=== PATIENT | female | born 1980 | race Caucasian/White ===

== ENCOUNTER → 2018-09-01 10:39 | Outpatient (CLI) | payer BC, SELFPAY ==
--- NOTE | 2018-09-01 10:54 | US_ITS ---
US OB transvaginal HISTORY: ITS.REASON: US OB Dates ORDERING PHYSICIAN: Duy Wilkinson MD PATIENT AGE: 38 years COMPARISON: None FINDINGS: An intrauterine gestational sac is present with a pole with a crown-rump length of 0.94cm correlating to gestational age of 7w0d. heart tones are present with an FHR of 136 bpm's. Yolk sac is noted. Adnexa: There is a 4.7 cm left corpus luteum cyst. IMPRESSION: Live intrauterine gestation with an average ultrasound age of 7 weeks 0 days. 4.7 cm left corpus luteum cyst Estimated due date by Ultrasound is 04/20/2019
[2018-09-01 11:57] LABS: Basophils % 0.4 % (0.1-2.0); Eosinophils % 0.3 % (0.1-12.0); Hematocrit 39.5 % (37.0-47.0); Hemoglobin 13.1 g/dL (12.2-16.2); Lymphocytes # 1.8 K/mm3 (0.7-4.5); Lymphocytes % 22.2 K/mm3 (10-50); Mean Corpuscular HGB Conc 33.2 g/dL (31.8-35.4); Mean Corpuscular Hemoglobin 32.2 pg (27.0-31.2); Mean Corpuscular Volume 96.9 fl (81-99); Mean Platelet Volume 6.7 fl (7.4-10.4); Monocytes # 0.3 K/mm3 (0.1-1.0); Monocytes % 4.1 % (1.7-9.3); Neutrophils % 72.9 % (37.0-80.0); Platelet Count 293 K/mm3 (142-424); Red Blood Count 4.07 M/mm3 (4.20-5.40); Red Cell Distribution Width 12.9 % (11.5-17.5); White Blood Count 8.3 K/mm3 (4.8-10.8)
[2018-09-02 14:45] LABS: HIV Screen 4th Generation wRfx Non Reactive (Non Reactive); Hepatitis B Surface Antigen Negative (Negative); Hepatitis C Antibody <0.1 s/co ratio (0.0-0.9); Rapid Plasma Reagin Ab Titer Non Reactive (NonRea<1:1); Rubella Antibodies, IgG 2.03 index (Immune >0.99)
== END ==
PROVIDERS: Visit Provider Nurse Practitioner Obstetrics & Gynecology
DX: Z34.90 Encounter for supervision of normal pregnancy, unspecified, unspecified trimester (principal); O26.841 Uterine size-date discrepancy, first trimester
CPT/HCPCS: 36415; 76817; 85025; 86592; 86703; 86762; 86850; 87340; 87380; G0432

== ENCOUNTER → 2018-12-01 12:45 | Outpatient (CLI) | payer BC, SELFPAY ==
--- NOTE | 2018-12-01 12:50 | US_ITS ---
US OB /maternal detail: INDICATION: ITS.REASON: US OB Complete ORDERING PHYSICIAN: Duy Wilkinson MD PATIENT AGE: 38 years TECHNIQUE: ultrasound transabdominal scanning. COMPARISON: No previous relevant studies. FINDINGS: Single viable intrauterine gestation. Ceph position. Placenta: Anterior placenta grade 1. There is average amount fluid. The cervix appears satisfactory. Closed and measuring 3 cm in length. Complete survey performed and was unremarkable on the submitted images as in PACS. No discrete anomalies identified on survey imaging by technologist. Active fetus. Three-vessel cord with satisfactory umbilical cord insertion. 4- chamber heart noted. Survey of brain & ventricles unremarkable. Face and neck survey unremarkable. Diaphragm and chest views unremarkable. Abdomen: Both kidneys noted and unremarkable. Stomach noted and satisfactory. Spine: Survey of the spine satisfactory with no anomalies identified nor imaged. Both arms and legs noted. Amniotic Fluid: Adequate. Maternal adnexa: No significant findings. Measurements: Average ultrasound age 20w1d. Gestational Age 20w0d. Estimated due date by ultrasound age 0604/19/2019. Estimated weight 339 grams. BPD = 20w1d OFD = 20w3d HC = 19w4d AC = 20w4d FL = 20w0d Growth Percentile= 58% Heart Rate = 144 Cerebellum = 20w0d Humerus = 20w1d HC/AC is 1.10 (1.09-1.26). CI is 78% (70-86%). FL/BPD is 69%. FL/AC is 21%. IMPRESSION: There is a single live fetus which is in cephalic presentation. heart and body motion noted. No obvious anomalies. All parameters correlate. Average ultrasound age is 20 weeks and 1 day. There is posterior grade 1 placenta. Please see above for details
== END ==
PROVIDERS: PCP Internal Medicine Adolescent Medicine; Visit Provider Nurse Practitioner Obstetrics & Gynecology
DX: Z36.0 Encounter for antenatal screening for chromosomal anomalies (principal)
CPT/HCPCS: 76811

== ENCOUNTER → 2019-01-22 07:48 | Outpatient (CLI) | payer BC, SELFPAY ==
[2019-01-22 08:34] LABS: Glucose,Fasting 84 mg/dL (60-105)
[2019-01-22 09:50] LABS: Glucose 1 Hour 149 mg/dL (74-106)
== END ==
PROVIDERS: Visit Provider Nurse Practitioner Obstetrics & Gynecology
DX: Z34.90 Encounter for supervision of normal pregnancy, unspecified, unspecified trimester (principal)
CPT/HCPCS: 36415; 82951

== ENCOUNTER → 2019-01-25 07:58 | Outpatient (CLI) | payer BC, SELFPAY ==
[2019-01-25 09:08] LABS: Glucose,Fasting 90 mg/dL (60-105)
[2019-01-25 09:41] LABS: Glucose 1 Hour 178 mg/dL (74-106)
[2019-01-25 10:55] LABS: Glucose 2 Hour 140 mg/dL (74-106)
[2019-01-25 11:58] LABS: Glucose 3 Hour 97 mg/dL (74-106)
== END ==
PROVIDERS: Visit Provider Nurse Practitioner Obstetrics & Gynecology
DX: Z34.90 Encounter for supervision of normal pregnancy, unspecified, unspecified trimester (principal)
CPT/HCPCS: 36415; 82951

== ENCOUNTER → 2019-03-18 15:32 | Outpatient (CLI) | payer BC, SELFPAY | PROVIDERS: Visit Provider Nurse Practitioner Obstetrics & Gynecology | DX: Z34.90 Encounter for supervision of normal pregnancy, unspecified, unspecified trimester (principal) | CPT/HCPCS: 86403 ==

== ENCOUNTER 2019-04-19 05:24 | Inpatient (IN) ==
[2019-04-19 05:38] LABS: Appearance,Urine SL CLOUDY (Clear); Bilirubin,Urine Negative (Negative); Blood, Urine 2+ (Negative); Color,Urine YELLOW (Yellow); Glucose,Urine (UA) Negative (Negative); Ketones,Urine Negative (Negative); Leukocyte Esterase,Urine Negative (Negative); Microscopic, Urine URINE MICROSCOPIC (MICROSCOPIC); Protein,Urine 2+ (Negative); Specific Gravity, Urine 1.025 (1.005-1.030); Urobilinogen,Urine 0.2 EU/dl (0.2)
[2019-04-19 05:42] LABS: Squamous Epithelial Cell,Urine 20-50 #/hpf (0-5); WBC,Urine Occasional #/hpf (0-3)
[2019-04-19 05:48] LABS: Amphetamine/Metha Screen,Urine Negative ng/mL (<1000); Barbiturates Screen,Urine Negative ng/mL (<200); Benzodiazepines Screen,Urine Negative ng/mL (<200); Cannabinoid Screen,Urine Negative ng/mL (<50); Cocaine Screen,Urine Negative ng/mL (<300); Methadone Screen,Urine Negative ng/mL (<300); Opiate Screen,Urine Negative ng/mL (<300); Phencyclidine Screen,Urine Negative ng/mL (<25)
[2019-04-19 06:04] LABS: Basophils # 0.1 K/mm3 (0-0.2); Basophils % 0.5 % (0.1-2.0); Eosinophils % 0.4 % (0.1-12.0); Hematocrit 31.6 % (37.0-47.0); Hemoglobin 10.8 g/dL (12.2-16.2); Lymphocytes # 1.8 K/mm3 (0.7-4.5); Lymphocytes % 20.3 % (10-50); Mean Corpuscular Volume 95.4 fl (81-99); Mean Platelet Volume 7.9 fl (7.4-10.4); Monocytes # 0.4 K/mm3 (0.1-1.0); Monocytes % 4.4 % (1.7-9.3); Neutrophils # 6.5 K/mm3 (1.8-7.8); Neutrophils % 74.4 % (37.0-80.0); Platelet Count 203 K/mm3 (142-424); Red Blood Count 3.32 M/mm3 (4.20-5.40); Red Cell Distribution Width 14.6 % (11.5-17.5); White Blood Count 8.8 K/mm3 (4.8-10.8)
[2019-04-19 06:11] LABS: Anion Gap 16.5 mEq/L (5-15); Calcium 8.5 mg/dL (8.5-10.1)
--- NOTE | 2019-04-19 07:19 | Progress Note ---
[facility] Anesthesia Checklist - Patient Identification Patient Identification: Arm Band, Verbal (Name & ) - Structural Data Admitted From: Home Planned Operative Procedure/s: Repeat , B salpingectomy Consent for Planned Operative Procedure(s) Verified: Yes Verified Documents: Surgical Consent, History and Physical - NPO Status Verified Time NPO: 00:00 - Chart Verification Results Verified: CBC, BMP - Additional verifications Patient : Yes Anesthesia Reactions: No - Airway Assessment C-Spine Mobility Assessed: Yes TMJ Mobility Assessed: Yes Dentition: Good Dentition - Neurological Assessment Level of Consciousness: Awake, Alert, Appropriate, Follows Commands Hx Seizures: No Numbness or tingling in extremities: No - Anesthesia Plan Anesthesia Risk discussed: Yes Anesthesia Plan: Verified ASA Class: II Anesthesia Type: Spinal [facility] History I have reviewed the patient's past medical history: Yes Medical History: Reports:: Gastroesophageal Reflux Disease(GERD), Hyperlipidemia Denies:: Anxiety, Depression, Diabetes Mellitus Type 1, Hypertension, Migraine, MRSA, Seizures *Have you ever received a pneumonia vaccine?: No *Have you received a flu vaccine this season?: No Other Surgeries: Yes: Amputation: No Fractures: No - *Social History Smoking Status: Current every day smoker Tobacco Type: cigarettes # Packs/Day (cigarettes): 0 Alcohol Intake: never Substance Use Type: denies use *Occupational Status:: employed *Travel in the last 8 weeks: None - Psychiatric History Expresses thoughts of harming self/others: None Suicide Plan Description: No Plan Pschychiatric History:: Denies:: Anxiety, Depression Family Hx:: No significant family history Para: 2
--- NOTE | 2019-04-19 08:45 | Operative Note ---
Date of procedure: 04/19/19 Pre-op Diagnosis:: Term , previous section, desire for sterilization Post-op Diagnosis:: Term , previous section, desire for sterilization Procedure performed:: Repeat lower segment transverse section and bilateral salpingectomy Surgeon:: Duy Wilkinson MD Differential Specialist(s):: Dr. Arriola SILVERING APPLICATOR:: Jass العلي Anesthesia: spinal Estimated blood loss (mL): 600 Clinical Note:: She is a 38-year-old 3 para 2 at 39+ weeks gestational age. She has had a previous section as a result of that was offered repeat lower segment transverse section. She also expressed desire for sterilization. The risks and benefits as well as the irreversibility of bilateral salpingectomy were discussed with the patient. Operative findings:: She delivered a liveborn female child at 7:45 AM on the morning of April 19, 2019. The baby had Apgars of 8 at 1 minute and 9 at 5 minutes. pH was 7.32. Ovaries and tubes appeared normal. Operative note:: She was taken to the operating room where spinal anesthesia was found be adequate. She was prepped and draped in normal sterile fashion in the supine position with a leftward tilt. A Mederos catheter was in the bladder. A Pfannenstiel skin incision was made with knife then carried through to the underlying layer of fascia with cautery. The fascia was opened in the midline with cautery and extended laterally using Levine scissors. Harley clamps were ap plied to the superior aspect of the fascial incision which was tented up and the underlying rectus muscles dissected off using cautery. The [place] clamps were then applied to the inferior aspect of the fascial incision which in a similar fashion was tented up and the underlying rectus muscles dissected off using cautery. The rectus muscles were then in the midline, the peritoneum identified, and entered sharply with Metzenbaum scissors. This incision was then extended superiorly and inferiorly with cautery. We had good visualization of the bladder inferiorly. The bladder peritoneum was then opened in the midline and extended laterally using Metzenbaum scissors. A bladder flap was created digitally. Transverse incision was made through the uterine muscle to the amnion. This inc ision was then extended laterally using fingers traction. The amnion was entered sharply with knife. There was clear amniotic fluid. The 's head was then delivered atraumatically. This was followed by the anterior shoulder and the rest of the infant's body atraumatically. The oropharynx and nasopharynx were bulb suctioned. We allowed the cord to continue to pulsate for approximately 1 minute. The cord was then doubly clamped and cut. The infant was then handed off to Dr. Ramírez who assigned Apgars of 8 at 1 minute and 9 at 5 minutes. We then obtained cord blood as well as cord pH. The pH was 7.32. Using gentle traction on the cord and countertraction on the fundus I was able to easily deliver the placenta intact. It had a normal three-vessel cord. Uterus was then exteriorized from the abdominal cavity. The uterus was then cleared of clots and debris . The uterine incision was then closed using running 0 Vicryl suture in a locked fashion. A second layer of the same suture was used to imbricate the first layer. The bladder peritoneum was then closed using running 2-0 Vicryl suture in a locked fashion. The gutters and cul-de-sac were then cleared of clots and debris . Once again hemostasis was assured. We then turned our attention to the bilateral salpingectomy. The distal end of the right tube was grasped and using the endo-seal device I clamped and cauterized along the mesosalpinx. The right tube was then removed. This was similar performed on the patient's left side. It was noted that there was some bleeding near the left ovary and I placed a number of [id number] sutures here to obtain excellent hemostasis. On the right side mesosalpinx there was also some bleeding and hemostasis was assured with [id number] 2-0 Vicryl suture. After assuring hemostasis the uterus was then returned to the abdominal cavity. We had first wrap the left ovary with 3 pieces of Surgicel. It was hemostatic. I elected to place Surgicel along the uterine incision as well. The peritoneum was grasped with Callie clamps and closed using running 2-0 Vicryl suture. The rectus muscles were then reapproximated using running 0 Vicryl suture. The fascia was closed using running #1 Vicryl suture. The subcutaneous tissues were then irrigated with warm water followed by closure Carie's fascia using running 2-0 Monocryl suture. The skin was closed with an. I then cleaned the skin with Hibiclens. Sterile dressings were applied. She tolerated the procedure well and was taken to the recovery room in excellent condition. All sponges minute and needle counts were correct. Estimate a blood loss was approximately 600 mL. Condition: stable Disposition: PACU Specimens:: Bilateral fallopian tubes Complications:: None
--- NOTE | 2019-04-19 08:47 | Progress Note ---
[facility] Anesthesia Record Part I Intake, IV Amount: 1,400 Estimated blood loss (mL): 600 Urine output (mL): 0 (NM) Blood Products used (#): none Blood Pressure: 117/63 SaO2: 97 Pulse Rate: 77 Respiratory Rate: 16 Temperature: 97.0 F Patient is:: Awake, Stable Stable to PACU at:: 08:40
--- NOTE | 2019-04-19 08:48 | Progress Note ---
[facility] Anesthesia Record Part II Discharge Time: 09:10 Destination: Obstetric PACU nurse assessment reviewed?: Yes Patient Condition:: Good Anesthesia Complications:: None Swallowing reflex intact?: Yes Cyanosis?: No
[2019-04-19 09:47] LABS: Hematocrit 23.9 % (37.0-47.0); Hemoglobin 7.8 g/dL (12.2-16.2)
--- NOTE | 2019-04-19 09:57 | Progress Note ---
Internal Medicine - PN: Subj *Date: 04/19/19 *Time: 09:54 Interval history: While in the PACU she passed about 500 cc of blood on her check. On massage of the uterus a few minutes later she passed another 500 cc. I inserted a BAKRI uterine balloon and this seemed to ameliorate the bleeding. She did receive 250 mcg of Hemabate as well as IV fluids and IV oxytocin. Her blood pressure had dropped into the systolic of 70s. Her heart rate was in the 110 range. After inserting the balloon she has stabilized. Her hemoglobin was 7.8. We have typed and crossed her for 4 units. We will plan to give her 2 units. She is now back up in labor and delivery and seems to be doing well. Her color is good her blood pressure is 109/70 and her heart rate is 82. She has some blood in the Mederos bag from the balloon but otherwise is stable. There is no bleeding from the vagina. We will plan to leave this in until tomorrow morning. Exam Vital signs and Labs for Last 24 Hours: Temp Pulse Resp BP 97.0 F L 77 16 117/63 04/19/19 08:47 04/19/19 08:47 04/19/19 08:47 04/19/19 08:47 Laboratory Results - last 24 hr 04/19/19 05:30: Urine Color Yellow, Urine Appearance Sl cloudy, Urine pH 7.0, Ur Specific [place] 1.025, Urine Protein 2+, Urine Glucose (UA) Negative, Urine Ketones Negative, Urine Blood 2+, Urine Nitrate Negative, Urine Bilirubin Negative, Urine Urobilinogen 0.2, Ur Leukocyte Esterase Negative, Urine RBC 5- 10, Urine WBC Occasional, Ur Squamous Epith Cells 20-50 04/19/19 05:30: Urine Opiates Screen Negative, Urine Methadone Screen Negative, Ur Barbituates Screen Negative, Ur Phencyclidine Scrn Negative, Ur Amphetamines Screen Negative, U Benzodiazepines Scrn Negative, Urine Cocaine Screen Negative, U Marijuana (THC) Screen Negative 04/19/19 05:55: WBC 8.8, RBC 3.32 L, Hgb 10.8 L, Hct 31.6 L, MCV 95.4, MCH 32.4 H, MCHC 34.0, RDW 14.6, Plt Count 203, MPV 7.9, Neut % (Auto) 74.4, Lymph % (Auto) 20.3, [place] % (Auto) 4.4, Eos % (Auto) 0.4, Baso % (Auto) 0.5, Neut # (Auto) 6.5, Lymph # (Auto) 1.8, [place] # (Auto) 0.4, Eos # (Auto) 0.0, Baso # (Auto) 0.1 04/19/19 05:55: Sodium 138, Potassium 3.5, Chloride 105, Carbon Dioxide 20 L, Anion Gap 16.5 H, BUN 7, Creatinine 0.52 L, Estimated Creat Clear 203, Estimated GFR 133, Est GFR ( Amer) 161, Glucose 88, Calcium 8.5 04/19/19 05:55: Blood Type O Positive, Antibody Screen Negative, Crossmatch (AHG) See Detail 04/19/19 07:30: Urine Color Yellow, Urine Appearance Clear, Urine pH 7.5, Ur Specific [place] 1.010, Urine Protein Negative, Urine Glucose (UA) Negative, Urine Ketones Negative, Urine Blood Trace-i, Urine Nitrate Negative, Urine Bilirubin Negative, Urine Urobilinogen 0.2, Ur Leukocyte Esterase Negative, Urine RBC Occasional, Urine WBC Occasional, Ur Squamous Epith Cells Occasional, Urine Bacteria Trace 04/19/19 07:49: Cord ABG pH 7.32 L 04/19/19 09:30: Hgb 7.8 L* D, Hct 23.9 L* I & O for Last 24 hours: Intake & Output 04/16/19 04/17/19 04/18/19 04/19/19 11:59 11:59 11:59 11:59 Intake Total 1400 / 1400 Balance 1400 / 1400 Weight 190 lb - Constitutional no acute distress Assessment and Plan (1) Postoperative vaginal bleeding Current visit: Yes Status: Acute Category: Medical (2) Postoperative anemia due to acute blood loss Current visit: Yes Status: Acute Category: Medical Code(s): D62 - Acute posthemorrhagic anemia (3) Uterine atony, , current hospitalization Current visit: Yes Status: Acute Category: Medical Code(s): O75.89 - Other specified complications of labor and delivery (4) tubal ligation planned Problem details: bilateral salpingectomy concurrent with repeat CS Current visit: No Status: Acute Category: Medical (5) Previous section Current visit: No Status: Acute Category: Surgical Code(s): Z98.891 - Hist ory of uterine scar from previous surgery - Assessment and plan all Dx Assessment and Plan for all problems:: She had some bleeding and has now stabilized. We put a balloon in the uterine cavity and this seems to have stopped her bleeding. Her uterus is well contracted. She is hemodynamically stable. We will plan to give her 2 units of blood and we have 2 other units on hold. Her hemoglobin is 7.8.
--- NOTE | 2019-04-19 15:26 | Pharmacy Consult Notes ---
[facility] Pharmacy VTE Monitoring - Patient Demographics Admission date: 04/19/19 Report Date: 04/19/19 Time: 15:26 Allergies/Adverse Reactions: Patient Allergies bacitracin [From Neosporin ([id number])] Allergy (Unknown, Verified 04/16/19 15:59) UNKNOWN neomycin [From Neosporin ([id number])] Allergy (Unknown, Verified 04/16/19 15:59) UNKNOWN Opioids - Morphine Analogues Allergy (Unknown, Verified 04/16/19 15:59) UNKNOWN polymyxin B [From Neosporin ([id number])] Allergy (Unknown, Verified 04/16/19 15:59) UNKNOWN Height: 1.68 m Weight: 86.183 kg Patient Problems: Current Active Problems (Updated 04/19/19 @ 09:58 by Duy Wilkinson MD) Postoperative vaginal bleeding (Acute) Postoperative anemia due to acute blood loss (Acute) Uterine atony, , current hospitalization (Acute) - VTE Risk Labs: VTE Related Lab Results Hgb 7.8 g/dL (12.2-16.2) L* D 04/19/19 09:30 Hct 23.9 % (37.0-47.0) L* 04/19/19 09:30 Plt Count 203 K/mm3 (142-424) 04/19/19 05:55 BUN 7 mg/dL (7-18) 04/19/19 05:55 Creatinine 0.52 mg/dL (0.55-1.02) L 04/19/19 05:55 Estimated Creat Clear 203 mL/min (50-200) 04/19/19 05:55 - Prophylaxis VTE Prophylaxis Ordered?: Yes Types of VTE Prophylaxis: IPCS Thigh High Location of Applied Device: Bilateral Lower Extremeties
[2019-04-19 15:39] VITALS: BP 97/55
[2019-04-19 16:52] LABS: Hematocrit 28.1 % (37.0-47.0)
[2019-04-19 16:55] LABS: Hemoglobin 9.3 g/dL (12.2-16.2)
[2019-04-20 07:03] LABS: Basophils % 0.1 % (0.1-2.0); Eosinophils % 0.2 % (0.1-12.0); Lymphocytes # 1.6 K/mm3 (0.7-4.5); Lymphocytes % 10.8 % (10-50); Mean Corpuscular HGB Conc 33.7 g/dL (31.8-35.4); Mean Platelet Volume 7.6 fl (7.4-10.4); Monocytes # 0.6 K/mm3 (0.1-1.0); Monocytes % 4.1 % (1.7-9.3); Neutrophils # 12.2 K/mm3 (1.8-7.8); Neutrophils % 84.8 % (37.0-80.0); Platelet Count 158 K/mm3 (142-424); Red Blood Count 2.42 M/mm3 (4.20-5.40); Red Cell Distribution Width 16.3 % (11.5-17.5); White Blood Count 14.3 K/mm3 (4.8-10.8)
[2019-04-20 08:10] LABS: Hemoglobin 7.7 g/dL (12.2-16.2)
--- NOTE | 2019-04-20 08:23 | Progress Note ---
Internal Medicine - PN: Subj *Date: 04/20/19 *Time: 08:22 Interval history: She is doing well this morning. She is eating and drinking and ambulating. Her lochia is normal. She had her Mederos catheter and uterine balloon catheter removed this morning. She has been putting out adequate urine. Her vaginal bleeding has been minimal. Her hemoglobin this morning is 7.7 with hematocrit of 22.8. She looks well. Her color is good. Exam Vital signs and Labs for Last 24 Hours: Temp Pulse Resp BP Pulse Ox 96.6 F L 76 18 97/55 L 98 04/19/19 15:30 04/19/19 15:30 04/19/19 15:30 04/19/19 15:30 04/19/19 15:30 Laboratory Results - last 24 hr 04/19/19 05:30: Urine Opiates Screen Negative, Urine Methadone Screen Negative, Ur Barbituates Screen Negative, Ur Phencyclidine Scrn Negative, Ur Amphetamines Screen Negative, U Benzodiazepines Scrn Negative, Urine Cocaine Screen Negative, U Marijuana (THC) Screen Negative 04/19/19 05:55: Blood Type O Positive, Antibody Screen Negative, Crossmatch (AHG) See Detail 04/19/19 07:30: Urine Color Yellow, Urine Appearance Clear, Urine pH 7.5, Ur Specific [place] 1.010, Urine Protein Negative, Urine Glucose (UA) Negative, Urine Ketones Negative, Urine Blood Trace-i, Urine Nitrate Negative, Urine Bilirubin Negative, Urine Urobilinogen 0.2, Ur Leukocyte Esterase Negative, Urine RBC Occasional, Urine WBC Occasional, Ur Squamous Epith Cells Occasional, Urine Bacteria Trace 04/19/19 09:30: Hgb 7.8 L* D, Hct 23.9 L* 04/19/19 16:35: Hgb 9.3 L D, Hct 28.1 L 04/20/19 06:05: WBC 14.3 H D, RBC 2.42 L D, Hgb 7.7 L*, Hct 22.8 L*, MCV 94.0, MCH 31.6 H, MCHC 33.7, RDW 16.3, Plt Count 158, MPV 7.6, Neut % (Auto) 84.8 H, Lymph % (Auto) 10.8, [place] % (Auto) 4.1, Eos % (Auto) 0.2, Baso % (Auto) 0.1, Neut # (Auto) 12.2 H, Lymph # (Auto) 1.6, [place] # (Auto) 0.6, Eos # (Auto) 0.0, Baso # (Auto) 0.0 I & O for Last 24 hours: Intake & Output 04/17/19 04/18/19 04/19/19 04/20/19 11:59 11:59 11:59 11:59 Intake Total 1400 / 1400 500 / 500 Output Total 300 / 300 Balance 1400 / 1100 200 / 200 Weight 190 lb - Constitutional no acute distress Assessment and Plan (1) Postoperative vaginal bleeding Current visit: Yes Status: Acute Category: Medical (2) Postoperative anemia due to acute blood loss Current visit: Yes Status: Acute Category: Medical Code(s): D62 - Acute posthemorrhagic anemia (3) Uterine atony, , current hospitalization Current visit: Yes Status: Acute Category: Medical Code(s): O75.89 - Other specified complications of labor and delivery (4) tubal ligation planned Problem details: bilateral salpingectomy concurrent with repeat CS Current visit: No Status: Acute Category: Medical (5) Previous section Current visit: No Status: Acute Category: Surgical Code(s): Z98.891 - History of uterine scar from previous surgery - Assessment and plan all Dx Assessment and Plan for all problems:: She is doing well this morning. We will plan to repeat her H&H in the morning. She is feeling well.
[2019-04-20 08:52] LABS: Hematocrit 22.8 % (37.0-47.0)
[2019-04-20 16:18] LABS: Hemoglobin 7.9 g/dL (12.2-16.2)
[2019-04-20 16:19] LABS: Hematocrit 23.3 % (37.0-47.0)
--- NOTE | 2019-04-21 00:27 | Progress Note ---
Internal Medicine - PN: Subj *Date: 04/21/19 *Time: 00:22 Interval history: She has had a few hour history of severe pain associated with nausea and vomiting. He has had multiple episodes of emesis. While in the bathroom she passed a tennis ball size clot. She is afebrile and her vital signs are stable. She says that the pain comes on severely like a menstrual cramp or lower abdominal pain and this causes her to be nauseous and she vomits. She denies any chest pain or shortness of breath. She denies any calf tenderness. Exam Vital signs and Labs for Last 24 Hours: Temp Pulse Resp BP Pulse Ox 96.6 F L 76 18 97/55 L 98 04/19/19 15:30 04/19/19 15:30 04/19/19 15:30 04/19/19 15:30 04/19/19 15:30 Laboratory Results - last 24 hr 04/19/19 05:55: Crossmatch (AHG) See Detail 04/20/19 06:05: WBC 14.3 H D, RBC 2.42 L D, Hgb 7.7 L*, Hct 22.8 L*, MCV 94.0, MCH 31.6 H, MCHC 33.7, RDW 16.3, Plt Count 158, MPV 7.6, Neut % (Auto) 84.8 H, Lymph % (Auto) 10.8, [place] % (Auto) 4.1, Eos % (Auto) 0.2, Baso % (Auto) 0.1, Neut # (Auto) 12.2 H, Lymph # (Auto) 1.6, [place] # (Auto) 0.6, Eos # (Auto) 0.0, Baso # (Auto) 0.0 04/20/19 16:07: Hgb 7.9 L*, Hct 23.3 L* I & O for Last 24 hours: Intake & Output 04/18/19 04/19/19 04/20/19 04/21/19 11:59 11:59 11:59 11:59 Intake Total 1400 / 1400 500 / 500 Output Total 300 / 300 Balance 1400 / 1100 200 / 200 Weight 190 lb - Constitutional no acute distress - *Routine HEENT Exam Head: Present: normocephalic Eye: Present: EOMI, PERRL ENT: Present: mucous membranes moist - *Routine Neck Exam Present: supple, full ROM - *Routine Respiratory Exam Absent: accessory muscle use (good air entry bilaterally), wheezes, crackles - *Routine Cardiovascular Exam Present: RRR. Absent: murmur - *Routine Abdominal Exam Present: soft, normoactive bowel sounds, tenderness, distended. Absent: rebound, guarding, mass Assessment and Plan (1) Postoperative vaginal bleeding Current visit: Yes Status: Acute Category: Medical (2) Postoperative anemia due to acute blood loss Current visit: Yes Status: Acute Category: Medical Code(s): D62 - Acute posthemorrhagic anemia (3) Uterine atony, , current hospitalization Current visit: Yes Status: Acute Category: Medical Code(s): O75.89 - Other specified complications of labor and delivery (4) tubal ligation planned Problem details: bilateral salpingectomy concurrent with repeat CS Current visit: No Status: Acute Category: Medical (5) Previous section Current visit: No Status: Acute Category: Surgical Code(s): Z98.891 - History of uterine scar from previous surgery - Assessment and plan all Dx Assessment and Plan for all problems:: On examination her belly is distended. She has bowel sounds. Her incision is clean and dry. Her uterus was quite tender to palpate. I suspect she may have an ileus causing her nausea vomiting. She has not been passing any gas. We will keep her on clear fluids for now. We have ordered a CBC and a Chem-12. We will go ahead and start ampicillin, gentamicin and clindamycin since she also could have a possible endometritis given the fact that we had to insert a balloon into the uterine cavity to stop bleeding postoperatively. Postoperatively she had ampicillin 2 g every 8 hours for 3 d oses earlier today her hemoglobin had risen to 7.9. She had received 2 units of packed red blood cells postoperatively. We have restarted her IV and we are giving her IV fluids as well. We have sta rted her on Phenergan as well as Zofran. She is receiving Toradol.
[2019-04-21 00:43] LABS: Basophils % 0.1 % (0.1-2.0); Eosinophils % 0.1 % (0.1-12.0); Lymphocytes # 0.6 K/mm3 (0.7-4.5); Lymphocytes % 5.3 % (10-50); Mean Corpuscular HGB Conc 33.3 g/dL (31.8-35.4); Mean Corpuscular Volume 93.5 fl (81-99); Mean Platelet Volume 7.9 fl (7.4-10.4); Monocytes # 0.4 K/mm3 (0.1-1.0); Monocytes % 3.2 % (1.7-9.3); Neutrophils % 91.3 % (37.0-80.0); Platelet Count 155 K/mm3 (142-424); Red Blood Count 2.55 M/mm3 (4.20-5.40); Red Cell Distribution Width 16.2 % (11.5-17.5); White Blood Count 12.1 K/mm3 (4.8-10.8)
[2019-04-21 00:53] LABS: Albumin/Globulin Ratio 0.7 (1.1-1.8); Bilirubin,Total 0.3 mg/dL (0.2-1.0); Calcium 8.1 mg/dL (8.5-10.1)
[2019-04-21 00:56] LABS: Hematocrit 23.9 % (37.0-47.0); Hemoglobin 7.9 g/dL (12.2-16.2)
[2019-04-21 01:45] LABS: Lymphocytes % 5 % (10-50); Monocytes % 2 % (2-9); Neutrophils % 93 % (42-76); RBC Morphology Normal; Total Cells Counted 100
--- NOTE | 2019-04-21 08:15 | Pharmacy Consult Notes ---
- Pharmacy Consult Date: 04/21/19 Time: 08:12 Referring provider: DR. LORD Reason for Consult:: GENTAMICIN DOSING Allergies and ADEs:: Allergies Allergy/AdvReac Type Severity Reaction Status Date / Time bacitracin Allergy Unknown UNKNOWN Verified 04/16/19 15:59 [From Neosporin ([id number])] neomycin Allergy Unknown UNKNOWN Verified 04/16/19 15:59 [From Neosporin ([id number])] Opioids - Morphine Analogues Allergy Unknown UNKNOWN Verified 04/16/19 15:59 polymyxin B Allergy Unknown UNKNOWN Verified 04/16/19 15:59 [From Neosporin (hei-cer-fhtog)] Home Medications:: Home Medications Medication Instructions Recorded Confirmed Type 1 tab PO DAILY 09/01/18 04/19/19 History vitamin,calcium,hlzzdqxz-zdnn-xnuji acid tablet Ferrous Sulfate 325 mg PO DAILY 04/19/19 04/19/19 History Height: 1.68 m Weight: 86.183 kg Laboratory Results:: Laboratory Results - last 24 hr 04/19/19 05:55: Crossmatch (AHG) See Detail 04/20/19 06:05: Hct 22.8 L* 04/20/19 16:07: Hgb 7.9 L*, Hct 23.3 L* 04/21/19 00:31: WBC 12.1 H, RBC 2.55 L, Hgb 7.9 L*, Hct 23.9 L*, MCV 93.5, MCH 31.1, MCHC 33.3, RDW 16.2, Plt Count 155, MPV 7.9, Neut % (Auto) 91.3 H, Lymph % (Auto) 5.3 L, [place] % (Auto) 3.2, Eos % (Auto) 0.1, Baso % (Auto) 0.1, Neut # (Auto) 11.0 H, Lymph # (Auto) 0.6 L, [place] # (Auto) 0.4, Eos # (Auto) 0.0, Baso # (Auto) 0.0, Total Counted 100, Neutrophils % (Manual) 93 H, Lymphocytes % (Manual) 5 L, Monocytes % (Manual) 2, Platelet Estimate Normal, RBC Morphology Normal 04/21/19 00:31: Sodium 139, Potassium 4.0, Chloride 107, Carbon Dioxide 23, Anion Gap 13.0, BUN 9 D, Creatinine 0.55, Estimated Creat Clear 192, Estimated GFR 125, Est GFR ( Amer) 151, Glucose 117 H, Calcium 8.1 L, Total Bilirubin 0.3, AST 23, ALT 19, Alkaline Phosphatase 75, Total Protein 5.0 L, Albumin 2.0 L, Globulin 3.0, Albumin/Globulin Ratio 0.7 L Medical History: Reports:: Gastroesophageal Reflux Disease(GERD), Hyperlipidemia Denies:: Anxiety, Depression, Diabetes Mellitus Type 1, Hypertension, Migraine, MRSA, Seizures Assessment and Plan (1) Postoperative vaginal bleeding Current visit: Yes Status: Acute Category: Medical (2) Postoperative anemia due to acute blood loss Current visit: Yes Status: Acute Category: Medical Code(s): D62 - Acute posthemorrhagic anemia (3) Uterine atony, , current hospitalization Current visit: Yes Status: Acute Category: Medical Code(s): O75.89 - Other specified complications of labor and delivery (4) tubal ligation planned Problem details: bilateral salpingectomy concurrent with repeat CS Current visit: No Status: Acute Category: Medical (5) Previous section Current visit: No Status: Acute Category: Surgical Code(s): Z98.891 - History of uterine scar from previous surgery - Assessment and plan all Dx Assessment and Plan for all problems:: BASED ON PATIENT FACTORS, RECOMMEND GENTAMICIN 420MG IV Q24H. WILL OBTAIN 4 AND 12 HOUR POST INFUSION LEVELS AND ADJUST DOSE APPROPRIATE FROM THERE. PATIENT'S DOSING BODY WEIGHT IS 70.1KG. -CARMELLA SMITH PHARMD
--- NOTE | 2019-04-21 09:21 | Progress Note ---
Internal Medicine - PN: Subj *Date: 04/21/19 *Time: :19 Interval history: She continues to have lower abdominal pain as well as nausea. She has not passed any gas. She has been belching. She has no fever or chills. Her blood work earlier this morning was completely normal. Her white count had actually gone down from 14-12. Had started on some antibiotics. Exam Vital signs and Labs for Last 24 Hours: Temp Pulse Resp BP Pulse Ox 96.6 F L 76 18 97/55 L 98 04/19/19 15:30 04/19/19 15:30 04/19/19 15:30 04/19/19 15:30 04/19/19 15:30 Laboratory Results - last 24 hr 04/19/19 05:55: Crossmatch (AHG) See Detail 04/20/19 16:07: Hgb 7.9 L*, Hct 23.3 L* 04/21/19 00:31: WBC 12.1 H, RBC 2.55 L, Hgb 7.9 L*, Hct 23.9 L*, MCV 93.5, MCH 31.1, MCHC 33.3, RDW 16.2, Plt Count 155, MPV 7.9, Neut % (Auto) 91.3 H, Lymph % (Auto) 5.3 L, [place] % (Auto) 3.2, Eos % (Auto) 0.1, Baso % (Auto) 0.1, Neut # (Auto) 11.0 H, Lymph # (Auto) 0.6 L, [place] # (Auto) 0.4, Eos # (Auto) 0.0, Baso # (Auto) 0.0, Total Counted 100, Neutrophils % (Manual) 93 H, Lymphocytes % (Manual) 5 L, Monocytes % (Manual) 2, Platelet Estimate Normal, RBC Morphology Normal 04/21/19 00:31: Sodium 139, Potassium 4.0, Chloride 107, Carbon Dioxide 23, Anion Gap 13.0, BUN 9 D, Creatinine 0.55, Estimated Creat Clear 192, Estimated GFR 125, Est GFR ( Amer) 151, Glucose 117 H, Calcium 8.1 L, Total Bilirubin 0.3, AST 23, ALT 19, Alkaline Phosphatase 75, Total Protein 5.0 L, Albumin 2.0 L, Globulin 3.0, Albumin/Globulin Ratio 0.7 L I & O for Last 24 hours: Intake & Output 04/18/19 04/19/19 04/20/19 04/21/19 11:59 11:59 11:59 11:59 Intake Total 1400 / 1400 500 / 500 Output Total 300 / 300 Balance 1400 / 1100 200 / 200 Weight 190 lb - Constitutional no acute distress - *Routine HEENT Exam Head: Present: normocephalic Eye: Present: EOMI, PERRL ENT: Present: mucous membranes moist - *Routine Neck Exam Present: supple, full ROM - *Routine Respiratory Exam Absent: accessory muscle use (good air entry bilaterally), wheezes, crackles - *Routine Cardiovascular Exam Present: RRR. Absent: murmur - *Routine Abdominal Exam Present: soft, normoactive bowel sounds, tenderness, wound. Absent: rebound, guarding, mass Comments: Her belly is less distended this morning. It is globally tender. Her belly is soft. There are bowel sounds present. Assessment and Plan (1) Postoperative vaginal bleeding Current visit: Yes Status: Acute Category: Medical (2) Postoperative anemia due to acute blood loss Current visit: Yes Status: Acute Category: Medical Code(s): D62 - Acute posthemorrhagic anemia (3) Uterine atony, , current hospitalization Current visit: Yes Status: Acute Category: Medical Code(s): O75.89 - Other specified complications of labor and delivery (4) tubal ligation planned Problem details: bilateral salpingectomy concurrent with repeat CS Current visit: No Status: Acute Category: Medical (5) Previous section Current visit: No Status: Acute Category: Surgical Code(s): Z98.891 - History of uterine scar from previous surgery (6) Postoperative ileus Current visit: Yes Status: Acute Category: Medical Code(s): K91.89 - Other postprocedural complications and disorders of digestive system; K56.7 - Ileus, unspecified - Assessment and plan all Dx Assessment and Plan for all problems:: We will make arrangements for her to have plain x-rays today of her abdomen. I will have her seen by 1 of our general surgeons in consultation.
--- NOTE | 2019-04-21 12:13 | Consult Report ---
*Admission Date: 04/19/19 *Reason for consult:: Ileus *History of present illness: This is a 38-year-old female seen in consultation from Dr. Wilkinson for evaluation regarding a postoperative ileus. She is postoperative day 2 status post C- section with bilateral salpingectomy. During the postoperative. She has continued to have some lower abdominal pain and nausea. She has yet to pass flatus. Review of Systems - Constitutional Denies chills - Eyes Denies change in vision - ENT Denies difficulty swallowing - *Cardiovascular Denies chest pain - *Respiratory Denies cough - *Gastrointestinal Reports abdominal pain, Reports belching, Reports nausea - Psychiatric Denies anxiety - Hematologic/Lymphatic Denies easy bleeding [facility] History Medical History: Reports:: Gastroesophageal Reflux Disease(GERD), Hyperlipidemia Denies:: Anxiety, Depression, Diabetes Mellitus Type 1, Hypertension, Migraine, MRSA, Seizures *Have you ever received a pneumonia vaccine?: No *Have you received a flu vaccine this season?: No Other Surgeries: Yes: Amputation: No Fractures: No - *Social History Smoking Status: Current every day smoker Tobacco Type: cigarettes # Packs/Day (cigarettes): 0 Alcohol Intake: never Substance Use Type: denies use *Occupational Status:: employed *Travel in the last 8 weeks: None - Psychiatric History Expresses thoughts of harming self/others: None Suicide Plan Description: No Plan Pschychiatric History:: Denies:: Anxiety, Depression Family Hx:: No significant family history Para: 2 Meds Home Medications Medication Instructions Recorded Confirmed Type 1 tab PO DAILY 09/01/18 04/19/19 History vitamin,calcium,qszanpnd-cwob-luppo acid tablet Ferrous Sulfate 325 mg PO DAILY 04/19/19 04/19/19 History Allergies Allergy/AdvReac Type Severity Reaction Status Date / Time bacitracin Allergy Unknown UNKNOWN Verified 04/16/19 15:59 [From Neosporin ([id number])] neomycin Allergy Unknown UNKNOWN Verified 04/16/19 15:59 [From Neosporin (gqy-nhp-gvchu)] Opioids - Morphine Analogues Allergy Unknown UNKNOWN Verified 04/16/19 15:59 polymyxin B Allergy Unknown UNKNOWN Verified 04/16/19 15:59 [From Neosporin (xuh-hin-eacsy)] Exam Vital signs and Labs for Last 24 Hours: Temp Pulse Resp BP Pulse Ox 96.6 F L 76 18 97/55 L 98 04/19/19 15:30 04/19/19 15:30 04/19/19 15:30 04/19/19 15:30 04/19/19 15:30 Laboratory Results - last 24 hr 04/19/19 05:55: Crossmatch (AHG) See Detail 04/20/19 16:07: Hgb 7.9 L*, Hct 23.3 L* 04/21/19 00:31: WBC 12.1 H, RBC 2.55 L, Hgb 7.9 L*, Hct 23.9 L*, MCV 93.5, MCH 31.1, MCHC 33.3, RDW 16.2, Plt Count 155, MPV 7.9, Neut % (Auto) 91.3 H, Lymph % (Auto) 5.3 L, [place] % (Auto) 3.2, Eos % (Auto) 0.1, Baso % (Auto) 0.1, Neut # (Auto) 11.0 H, Lymph # (Auto) 0.6 L, [place] # (Auto) 0.4, Eos # (Auto) 0.0, Baso # (Auto) 0.0, Total Counted 100, Neutrophils % (Manual) 93 H, Lymphocytes % (Manual) 5 L, Monocytes % (Manual) 2, Platelet Estimate Normal, RBC Morphology Normal 04/21/19 00:31: Sodium 139, Potassium 4.0, Chloride 107, Carbon Dioxide 23, Anion Gap 13.0, BUN 9 D, Creatinine 0.55, Estimated Creat Clear 192, Estimated GFR 125, Est GFR ( Amer) 151, Glucose 117 H, Calcium 8.1 L, Total Bilirubin 0.3, AST 23, ALT 19, Alkaline Phosphatase 75, Total Protein 5.0 L, Albumin 2.0 L, Globulin 3.0, Albumin/Globulin Ratio 0.7 L I & O for Last 24 hours: Intake & Output 04/19/19 04/20/19 04/21/19 04/22/19 11:59 11:59 11:59 11:59 Intake Total 1400 / 1400 500 / 500 Output Total 300 / 300 Balance 1400 / 1100 200 / 200 Weight 190 lb - Constitutional no acute distress - *Routine Respiratory Exam Absent: respiratory distress - *Routine Cardiovascular Exam Present: RRR - *Routine Abdominal Exam Present: soft Results - Labs 04/21/19 00:31 04/21/19 00:31 Laboratory Results - last 24 hr 04/19/19 05:55: Crossmatch (AHG) See Detail 04/20/19 16:07: Hgb 7.9 L*, Hct 23.3 L* 04/21/19 00:31: WBC 12.1 H, RBC 2.55 L, Hgb 7.9 L*, Hct 23.9 L*, MCV 93.5, MCH 31.1, MCHC 33.3, RDW 16.2, Plt Count 155, MPV 7.9, Neut % (Auto) 91.3 H, Lymph % (Auto) 5.3 L, [place] % (Auto) 3.2, Eos % (Auto) 0.1, Baso % (Auto) 0.1, Neut # (Auto) 11.0 H, Lymph # (Auto) 0.6 L, [place] # (Auto) 0.4, Eos # (Auto) 0.0, Baso # (Auto) 0.0, Total Counted 100, Neutrophils % (Manual) 93 H, Lymphocytes % (Manual) 5 L, Monocytes % (Manual) 2, Platelet Estimate Normal, RBC Morphology Normal 04/21/19 00:31: Sodium 139, Potassium 4.0, Chloride 107, Carbon Dioxide 23, Anion Gap 13.0, BUN 9 D, Creatinine 0.55, Estimated Creat Clear 192, Estimated GFR 125, Est GFR ( Amer) 151, Glucose 117 H, Calcium 8.1 L, Total Bilirubin 0.3, AST 23, ALT 19, Alkaline Phosphatase 75, Total Protein 5.0 L, Albumin 2.0 L, Globulin 3.0, Albumin/Globulin Ratio 0.7 L - Imaging Abdominal x-ray: report reviewed, image reviewed Assessment and Plan (1) Postoperative vaginal bleeding Current visit: Yes Status: Acute Category: Medical (2) Postoperative anemia due to acute blood loss Current visit: Yes Status: Acute Category: Medical Code(s): D62 - Acute posthemorrhagic anemia (3) Uterine atony, , current hospitalization Current visit: Yes Status: Acute Category: Medical Code(s): O75.89 - Other specified complications of labor and delivery (4) tubal ligation planned Problem details: bilateral salpingectomy concurrent with repeat CS Current visit: No Status: Acute Category: Medical (5) Previous section Current visit: No Status: Acute Category: Surgical Code(s): Z98.891 - History of uterine scar from previous surgery (6) Postoperative ileus Current visit: Yes Status: Acute Category: Medical Code(s): K91.89 - Other postprocedural complications and disorders of digestive system; K56.7 - Ileus, unspecified Dulcolax suppositories twice daily Fleets enema twice daily (alternating with suppositories) Repeat flat and upright films in the morning Continue serial abdominal exams Limited trial of clear liquids
--- NOTE | 2019-04-22 06:18 | Progress Note ---
Subjective Patient reports: feels better, flatus, bowel movement Exam Vital signs and Labs for Last 24 Hours: Temp Pulse Resp BP Pulse Ox 96.6 F L 76 18 97/55 L 98 04/19/19 15:30 04/19/19 15:30 04/19/19 15:30 04/19/19 15:30 04/19/19 15:30 Laboratory Results - last 24 hr 04/19/19 05:55: Crossmatch (AHG) See Detail 04/21/19 13:41: Random Gentamicin 3.9 L 04/21/19 21:30: Random Gentamicin 0.6 L I & O for Last 24 hours: Intake & Output 04/19/19 04/20/19 04/21/19 04/22/19 11:59 11:59 11:59 11:59 Intake Total 1400 / 1400 500 / 500 Output Total 300 / 300 Balance 1400 / 1100 200 / 200 Weight 190 lb - Constitutional no acute distress - *Routine Abdominal Exam Present: soft Progress Note: A&P (1) Postoperative vaginal bleeding Status: Acute Current Visit: Yes (2) Postoperative anemia due to acute blood loss Status: Acute Current Visit: Yes (3) Uterine atony, , current hospitalization Status: Acute Current Visit: Yes (4) tubal ligation planned Problem details: bilateral salpingectomy concurrent with repeat CS Status: Acute Current Visit: No (5) Previous section Status: Acute Current Visit: No (6) Postoperative ileus Status: Resolved Assessment and plan: Significant improvement with suppositories/enemas Slowly advance diet Continue enemas/suppositories as needed Current Visit: Yes
--- NOTE | 2019-04-22 08:29 | Discharge Summary ---
General - General Admission date:: 04/19/19 Discharge date: 04/22/19 HPI HPI: She is a 38-year-old 3 para 2 who is 39 weeks gestational age. She has had a previous section and as a result of that was offered repeat lower segment transverse section at term. She also expressed desire for sterilization. Hospital Course Hospital Course: On April 19, 2019 she delivered a liveborn female child by section. The baby weighed 8 pounds 2 ounces and had Apgars of 8 at 1 minute and 9 at 5 minutes. pH was 7.32. She underwent a bilateral salpingectomy as well. In the recovery room she had significant bleeding and a balloon catheter was inserted into the lining of the uterus to stem the flow of blood. She did well with this overnight and she did receive 2 units of blood at that time. The following day remove the catheter and her hemoglobin was stable. Later that evening on postop day 1 she began to have some severe abdominal pain and had not been passing any gas. She was globally tender in her belly. At that time it was not clear prior to her x-rays whether she had an ileus or endometritis. She was afebrile and her white count dropped from 14-12. I had started her on IV antibiotics. The following morning we started Dulcolax suppositories and consulted general surgery. She was seen by Dr. Fortune. Flatplate showed that she had an ileus with air-fluid levels. Subsequently she had 4 large bowel movements and passed significant gas and today she is doing much better. She would like to go home. She is eating and drinking and ambulating. She is bottlefeeding. She has O+ blood, she is rubella immune and was group B streptococcus negative. Mud Boss is Dr. Ramírez. Rhogam Administration: Not Indicated Objective Vital signs: Temp Pulse Resp BP Pulse Ox 96.6 F L 76 18 97/55 L 98 04/19/19 15:30 04/19/19 15:30 04/19/19 15:30 04/19/19 15:30 04/19/19 15:30 no acute distress - *Routine HEENT Exam Head: Present: normocephalic - *Routine Neck Exam Present: supple, full ROM - *Routine Abdominal Exam Present: soft, normoactive bowel sounds Results Labs on day of discharge: Labs from last 24 hours 04/21/19 04/21/19 04/19/19 21:30 13:41 05:55 Random Gentamicin 0.6 L 3.9 L Crossmatch (AHG) See Detail DS: Diagnosis - Discharge Diagnosis (1) Postoperative vaginal bleeding Status: Acute (2) Postoperative anemia due to acute blood loss Status: Acute (3) Uterine atony, , current hospitalization Status: Acute (4) tubal ligation planned Status: Acute Problem details: bilateral salpingectomy concurrent with repeat CS (5) Previous section Status: Acute (6) Postoperative ileus Status: Resolved Discharge Plan - Patient Discharge Instructions ACTIVITY: No heavy lifting DIET: continue same diet - Follow up Plan Disposition: Home, Self-Longterm Medications: Home Medications Medication Instructions Recorded Confirmed Type 1 tab PO DAILY 09/01/18 04/19/19 History vitamin,calcium,ioipusxn-okqo-pmini acid tablet Ferrous Sulfate 325 mg PO DAILY 04/19/19 04/19/19 History Fluconazole [Diflucan] 150 mg PO DAILYP PRN #5 tab 04/22/19 Rx Prescriptions/Medication Reconciliation: New Fluconazole [Diflucan] 150 mg PO DAILYP PRN #5 tab PRN Reason: as directed by physician Continued vitamin,calcium,uhaialpg-ezip-iixvi acid tablet 1 tab PO DAILY Ferrous Sulfate 325 mg PO DAILY
== END 2019-04-22 10:55 | disposition home or self-care (01) | DRG 784 ==
LOC: OB 05:24
PROVIDERS: ADMIT Nurse Practitioner Obstetrics & Gynecology; ATTEND Nurse Practitioner Obstetrics & Gynecology
CPT/HCPCS: 36415; 59025; 74021; 74022; 80048; 80053; 80170; 80305; 81001; 82800; 85007; 85014; 85018; 85025; 86850; 94761; J2405; P9016

== ENCOUNTER → 2021-07-16 10:54 | Outpatient (CLI) | payer BC, SELFPAY | PROVIDERS: PCP Internal Medicine Adolescent Medicine; Visit Provider Nurse Practitioner | DX: U07.1 COVID-19 (principal) | CPT/HCPCS: C9803; U0003; U0005 ==

== ENCOUNTER → 2022-02-14 14:47 | Outpatient (CLI) | payer BC, SELFPAY ==
[2022-02-22 08:42] LABS: D001-IgE D pteronyssinus <0.10 kU/L (Class 0); D002-IgE D farinae 0.14 kU/L (Class 0/I); E001-IgE Cat Dander <0.10 kU/L (Class 0); E005-IgE Dog Dander <0.10 kU/L (Class 0); E072-IgE Mouse Urine <0.10 kU/L (Class 0); G002-IgE Bermuda Grass 0.25 kU/L (Class 0/I); G006-IgE Timothy Grass 0.23 kU/L (Class 0/I); I006-IgE Cockroach, German 0.22 kU/L (Class 0/I); Immunoglobulin E, Total 69 IU/mL (6-495); M001-IgE Penicillium chrysogen <0.10 kU/L (Class 0); M002-IgE Cladosporium herbarum <0.10 kU/L (Class 0); M003-IgE Aspergillus fumigatus <0.10 kU/L (Class 0); M006-IgE Alternaria alternata <0.10 kU/L (Class 0); T001-IgE Maple/Box Elder 0.24 kU/L (Class 0/I); T003-IgE Common Silver Birch 0.22 kU/L (Class 0/I); T006-IgE Cedar, Mountain 0.23 kU/L (Class 0/I); T007-IgE Oak, White 0.24 kU/L (Class 0/I); T008-IgE Elm, American 0.24 kU/L (Class 0/I); T010-IgE Walnut 0.26 kU/L (Class 0/I); T011-IgE Maple Leaf Sycamore 0.26 kU/L (Class 0/I); T014-IgE Cottonwood 0.25 kU/L (Class 0/I); T015-IgE Ash, White 0.27 kU/L (Class 0/I); T022-IgE Pecan, Hickory 0.24 kU/L (Class 0/I); W001-IgE Ragweed, Short 0.25 kU/L (Class 0/I); W011-IgE Thistle, Russian 0.24 kU/L (Class 0/I); W014-IgE Pigweed, Common 0.23 kU/L (Class 0/I); W018-IgE Sheep Sorrel 0.29 kU/L (Class 0/I)
== END ==
PROVIDERS: Visit Provider Otolaryngology
DX: J30.9 Allergic rhinitis, unspecified (principal)
CPT/HCPCS: 36415; 82785; 86003

== ENCOUNTER → 2023-06-10 07:40 | Outpatient (CLI) | payer BC, SELFPAY ==
--- NOTE | 2023-06-10 07:47 | MM_ITS ---
PROCEDURE INFORMATION: Exam: MG Bilateral Screening 3D Mammography Exam date and time: 06/10/2023 7:50 AM Age: 42 years old Clinical indication: Screening mammogram. No personal or family history of breast cancer; Additional info: Screening-baseline TECHNIQUE: Imaging protocol: Bilateral Screening tomosynthesis and 2D mammography including computer-aided detection (CAD) when performed. COMPARISON: No relevant prior studies available. FINDINGS: MAMMOGRAPHY: Breast composition: The breast is heterogeneously dense, which may obscure small masses. Mass: None. Architectural distortion: No new or suspicious architectural distortion. Calcifications: There are benign-appearing calcifications within the bilateral breast. Asymmetric density: No new or suspicious asymmetric density is present Skin thickening: None. Axillary adenopathy: None. IMPRESSION: No mammographic evidence of malignancy. Recommend annual screening mammography unless otherwise clinically indicated. ASSESSMENT: BI-RADS category 2: Benign
== END ==
PROVIDERS: PCP Internal Medicine Adolescent Medicine; Visit Provider Nurse Practitioner Family
DX: Z12.31 Encounter for screening mammogram for malignant neoplasm of breast (principal)
CPT/HCPCS: 77063; 77067

== ENCOUNTER 2023-12-25 07:50 | Outpatient (CLI) | payer BC, SELFPAY ==
[2023-12-25 09:07] LABS: Basophils % 0.8 % (0.1-2.0); Eosinophils % 0.7 % (0.1-12.0); Hematocrit 43.1 % (37.0-47.0); Hemoglobin 14.3 g/dL (12.2-16.2); Lymphocytes # 1.5 K/mm3 (0.7-4.5); Lymphocytes % 29.3 % (10-50); Mean Corpuscular HGB Conc 33.1 g/dL (31.8-35.4); Mean Corpuscular Hemoglobin 33.9 pg (27.0-31.2); Mean Corpuscular Volume 102.6 fl (81-99); Mean Platelet Volume 7.7 fl (7.4-10.4); Monocytes # 0.3 K/mm3 (0.1-1.0); Monocytes % 5.9 % (1.7-9.3); Neutrophils # 3.2 K/mm3 (1.8-7.8); Neutrophils % 63.3 % (37.0-80.0); Platelet Count 237 K/mm3 (142-424); Red Cell Distribution Width 12.5 % (11.5-17.5)
[2023-12-25 10:24] LABS: Alanine Aminotransferase 33 U/L (12-78); Albumin Level 4.6 g/dl (3.5-5.0); Albumin/Globulin Ratio 1.8 (1.1-1.8); Alkaline Phosphatase 70 U/L (38-126); Anion Gap 10.4 mEq/L (5-15); Aspartate Amino Transferase 33 U/L (14-36); Bilirubin,Total 0.7 mg/dl (0.2-1.3); Blood Urea Nitrogen 6 mg/dl (7-17); Calcium 9.7 mg/dl (8.4-10.2); Carbon Dioxide 29 mmol/L (22.0-30.0); Chloride 104 mmol/L (98-107); Chol/HDL Ratio 4.1 (1-3.5); Cholesterol 220 mg/dl (140-200); Estimated Glomerular Filt Rate 110 ml/min (>60); GFR (African American) 133 ML/MIN (>60); Globulin 2.5 g/dL (1.3-3.2); Glucose 117 mg/dl (74-100); HDL Cholesterol 54 mg/dl (40-60); Potassium 4.4 mmoL/L (3.5-5.1); Sodium 139 mmol/L (136-145); Total Protein,Serum 7.1 g/dl (6.3-8.2); Triglycerides 114 mg/dl (30-150); VLDL Cholesterol 23 mg/dL (0-40)
[2023-12-25 10:35] LABS: Direct LDL Cholesterol 128.77 mg/dL (100-129)
== END 2023-12-25 23:59 ==
PROVIDERS: PCP Nurse Practitioner Family; Visit Provider Nurse Practitioner Obstetrics & Gynecology
DX: Z01.419 Encounter for gynecological examination (general) (routine) without abnormal findings (principal)
CPT/HCPCS: 36415; 80053; 80061; 85025

== ENCOUNTER 2024-07-09 08:05 | Outpatient (CLI) | payer BC, SELFPAY ==
--- NOTE | 2024-07-09 08:09 | MM_ITS ---
PROCEDURE INFORMATION: Exam: MG Bilateral Screening 3D Mammography Exam date and time: 07/09/2024 8:15 AM Age: 44 years old Clinical indication: Screening. No family history of breast cancer. TECHNIQUE: Imaging protocol: Bilateral Screening tomosynthesis and 2D mammography including computer-aided detection (CAD) when performed. COMPARISON: MG MM DIG SCREENING MAMM BI W/CAD 06/10/2023 7:50 AM FINDINGS: MAMMOGRAPHY: Breast composition: The breasts are heterogeneously dense, which may obscure small masses. Mass: None. Architectural distortion: Stable diffuse bilateral architectural distortion with history of reduction mammoplasty. Calcifications: No suspicious calcifications. Asymmetric density: None. Skin thickening: None. Axillary adenopathy: None. IMPRESSION: No mammographic evidence of malignancy. Annual screening is recommended unless otherwise clinically indicated. ASSESSMENT: BI-RADS Category 2: Benign.
== END 2024-07-09 23:59 | disposition home or self-care (01) ==
LOC: RAD 08:06
PROVIDERS: PCP Nurse Practitioner Family; Visit Provider Nurse Practitioner Family
DX: Z12.31 Encounter for screening mammogram for malignant neoplasm of breast (principal)
CPT/HCPCS: 77063; 77067

== ENCOUNTER 2024-09-07 14:10 | Outpatient (POV) | payer BC, SELFPAY | END 2024-09-07 23:59 | disposition home or self-care (01) | LOC: SC 09-08 09:05 | PROVIDERS: Visit Provider Dermatology | DX: Z00.00 Encounter for general adult medical examination without abnormal findings (principal) ==